=== PATIENT | male | born 1975 | race Caucasian/White ===

== ENCOUNTER 2019-03-19 17:14 | Emergency (ER) | payer BC ==
[~2019-03-19] VITALS: Ht 175.3 cm; Wt 83.9 kg
[2019-03-19 18:00] LABS: CALCIUM 9.1 mg/dL (8.5-10.1); CARBON DIOXIDE 22.8 mmol/L (21-32); CREATININE SERUM 1.5 mg/dL (0.7-1.3); POTASSIUM SERUM 5.3 mmol/L (3.5-5.1)
[2019-03-19 18:03] LABS: BASOPHIL % 0.1 % (0-2); PLATELET COUNT 209 x10^3mcL (130-400); RED CELL DISTRIBUTION WIDTH 13.9 % (11.5-14.5)
[2019-03-19 18:04] LABS: ALBUMIN 4.1 g/dL (3.4-5.0); TOTAL PROTEIN, SERUM 7.7 g/dL (6.4-8.2)
[2019-03-19 20:12] VITALS: BP 125/84
== END 2019-03-19 21:19 | disposition home or self-care (01) ==
LOC: ED 17:14
PROVIDERS: Emergency Medicine
DX: N20.0 Calculus of kidney (principal)
CPT/HCPCS: J1885; J3010

== ENCOUNTER 2019-08-04 03:06 | Emergency (ER) | payer BC, SELFPAY ==
[~2019-08-04] VITALS: Ht 172.7 cm; Wt 83.9 kg
[2019-08-04 03:48] VITALS: Ht 172.7 cm; Wt 83.9 kg
[2019-08-04 07:02] VITALS: BP 107/73
== END 2019-08-04 07:02 | disposition home or self-care (01) ==
LOC: ED 03:06
DX: U07.1 COVID-19 (principal)
CPT/HCPCS: J1885; Q0092; U0003-CS